=== PATIENT | male | born 1995 | race Hispanic/Latino ===

== ENCOUNTER 2017-10-13 10:41 | Emergency (ER) | payer SELFPAY ==
[~2017-10-13] VITALS: Ht 185.4 cm; Wt 108.9 kg
[~2017-10-13 10:41] MED LIST: K DUR10 MEQ PO; LANTUS 3ML100 UNITS/ SC; NOVOLOG100 UNIT/1 SQ
[2017-10-13] MEDS ORDERED: LIDOCAINE 1% W/EPINEPHRINE 20 ML VIAL INJ ONE (11:30)
[2017-10-13 11:46] VITALS: BP 136/88
== END 2017-10-13 11:48 | disposition home or self-care (01) ==
LOC: ER 10:41
DX: L02.01 Cutaneous abscess of face (principal)
CPT/HCPCS: 99283

== ENCOUNTER 2018-01-18 15:44 | Inpatient (IN) | payer OTHER ==
[~2018-01-18] VITALS: Ht 185.4 cm; Wt 108.9 kg
--- OUTSIDE RECORDS SUMMARY | 2018-01-18 15:45 | XMS REPORT | Continuity of Care Document ---
Author Author [facility] Organization [facility] Address [address] [place] [place] [address] Phone Unavailable Care Team Providers Care Chocolate Maker Name Role Phone JOLYNN KUMAR DO PCP Insurance Providers Guarantor Richar Morales Address [address] [place] [address] Payer [employer] Policy Number [id number] Subscriber's Name Richar Morales Relationship 33 Father Group Number [id number] Group Name [facility] Effective Date 13 Advance Directives Directive Response Recorded Date/Time Does the patient have an advance directive? No 12/15/07 1:35pm If yes, is advance directive on file with [facility]? No 12/15/07 1:35pm If not on file with [facility] will patient provide a copy? No 06/17/16 1:31pm Do you have a Directive to Physician? No 10/13/17 11:29am Do you have a Medical Power of Bridge Worker? No 10/13/17 11:29am Do you have an out of hospital Do Not Resuscitate Order? No 10/13/17 11:29am Do you have any special needs we should be aware of? No 10/13/17 11:29am Do you have a support person here with you today? Yes 10/13/17 11:29am Did patient receive Notice of Privacy Practices? Yes 10/13/17 11:29am Did patient receive patient rights and responsibilities? Yes 10/13/17 11:29am Problems No problem information available. Medications Current Home Medications Medication Dose Units Route Directions Days Qty Instructions Start Date Insulin Aspart (Novolog) 100 Unit/1 Ml Cartridge 60 Units Sub-Q Before Meals Insulin Glargine (Lantus 3ML Pen) 100 Units/1 Ml Inj 40 Units Subcutaneously Bedtime Potassium Chloride (K Dur*) 10 Meq Tabcr 10 Meq Oral Daily Social History Smoking Status Start Date Stop Date Never Smoker Hospital Discharge Instructions No hospital discharge instruction information available. Plan of Care Discharge Date 10/13/17 11:48am Disposition HOME, SELF-CARE Condition at Discharge Stable Instructions/Education Provided Skin Abscess Forms Provided Work/School Excuse Prescriptions See Medication Section Referrals JOLYNN KUMAR DO Address: [address] [place] [id number] Additional Instructions/Education 1. warm compresses three times a day 2. packing out in 48 hours 3. follow uyp with your doctor in 1-2 days with out fail Functional Status No functional status information available. Allergies, Adverse Reactions, Alerts Allergen Type Severity Reaction Status Last Updated Amoxicillin Allergy Unknown Hives Active 10/01/16 penicillin Allergy Mild Hives Active 06/17/16 Immunizations No immunization information available. Vital Signs Acute Vital Signs Vital Response Date/Time Temperature (Fahrenheit) 98.0 degrees F (97.6 - 99.5) 10/13/2017 11:46am Pulse Pulse Rate (adult) 80 bpm (60 - 90) 10/13/2017 11:46am Respiratory Rate 18 bpm (12 - 24) 10/13/2017 11:46am Blood Pressure 136/88 mm Hg 10/13/2017 11:46am Height 6 ft 1 in 10/13/2017 10:55am Weight 240 lb 10/13/2017 10:55am Body Mass Index 31.7 kg/m^2 10/13/2017 10:55am Results No relevant diagnostic test, laboratory data and/or discharge summary information available. Procedures No procedure information available. Encounters Encounter Location Arrival/Admit Date Discharge/Depart Date Attending Provider Departed Emergency Room [facility] 10/13/17 10:41am 10/13 11:48am SACHIN HENDERSON MD
[2018-01-18 16:47] LABS: BASOPHILS % 0.2 % (0.0-1.0); EOSINOPHILS # (AUTO) 0.1 (0.0-0.4); EOSINOPHILS % 0.6 % (0.0-6.0); HEMATOCRIT 42.2 % (38.2-49.6); HEMOGLOBIN 15.7 g/dL (14.0-18.0); LYMPHOCYTES # (AUTO) 0.7 (1.0-3.2); LYMPHOCYTES % 8.4 % (18.0-39.1); MEAN CORPUSCULAR HEMOGLOBIN 32.4 pg (28-32); MEAN CORPUSCULAR HGB CONC 37.2 g/dL (31-35); MONOCYTES # (AUTO) 0.9 (0.2-0.8); NEUTROPHILS # (AUTO) 6.9 (2.1-6.9); NEUTROPHILS % 80.4 % (38.7-80.0); PLATELET COUNT 175 x10e3/uL (140-360); RED BLOOD COUNT 4.85 x10e6/uL (4.3-5.7); RED CELL DISTRIBUTION WIDTH 12.3 % (11.7-14.4)
[2018-01-18] MEDS ORDERED: SODIUM CHLORIDE 0.9% 1000ML 1,000 ML IV STA (17:03)
[2018-01-18 17:04] LABS: ALANINE AMINOTRANSFERASE 15 IU/L (0-55); ALBUMIN 4.3 g/dL (3.5-5.0); ALBUMIN/GLOBULIN RATIO 0.9 (0.8-2.0); ALKALINE PHOSPHATASE 150 IU/L (40-150); ANION GAP 24.4 mmol/L (8-16); BLOOD UREA NITROGEN 17 mg/dL (7-26); BUN/CREATININE RATIO 17 (6-25); CALCIUM 9.9 mg/dL (8.4-10.2); CARBON DIOXIDE 14 mmol/L (22-29); CHLORIDE 94 mmol/L (98-107); CREATININE, SERUM 1.01 mg/dL (0.72-1.25); EST GLOMERULAR FILTRATION RATE > 60 ML/MIN (60-); POTASSIUM 3.4 mmol/L (3.5-5.1); SODIUM 129 mmol/L (136-145)
[2018-01-18 17:07] LABS: GLUCOSE 464 mg/dL (74-118)
[2018-01-18] MEDS: SODIUM CHLORIDE 0.9% 1000ML 1,000 ML IV SCH ×2 (17:15→21:48)
[2018-01-18] MEDS ORDERED: INSULIN REGULAR, HUMAN 3ML VL 1 UNIT in SODIUM CHLORIDE 0.9% 100 ML IV SCH ×2 (17:30)
[2018-01-18] MEDS ORDERED: INSULIN DETEMIR 100 UNIT/ML PEN SQ PRN (17:30)
[2018-01-18] MEDS ORDERED: MAGNESIUM SULF 1GRAM/DEXTROSE 100 ML IV PRN (17:30)
--- NOTE | 2018-01-18 17:50 | Diagnostic Imaging Report ---
PROCEDURE: A single AP view of the chest. COMPARISON: None. INDICATIONS: ELEVATED BLOOD SUGAR. NAUSEA/VOMITING. ABDOMINAL PAIN FINDINGS: Lines/tubes: None. Lungs: Limited by body habitus and low lung volumes. There is no evidence of pneumonia or pulmonary edema. Pleura: There is no pleural effusion or pneumothorax. Heart and mediastinum: The heart and the mediastinum are unremarkable. Bones: No acute bony abnormality. IMPRESSION: 1. No acute cardiopulmonary disease. Dictated by: Arcadio Velázquez M.D. on 01/18/2018 at 17:52 Electronically approved by: Arcadio Velázquez M.D. on 01/18/2018 at 17:52
[2018-01-18] MEDS: POTASSIUM CHLORIDE 20MEQ/100ML 200 ML IV PRN (18:05)
[2018-01-18] MEDS: INSULIN REGULAR, HUMAN 3ML VL 100 UNIT in SODIUM CHLORIDE 0.9% 100 ML IV SCH ×2 (18:45)
[2018-01-18] MEDS ORDERED: MORPHINE SULFATE 2 MG/ML SYR IV PRN (19:00)
[2018-01-18] MEDS ORDERED: ONDANSETRON HCL 4 MG ORAL DISINTEGRATING TAB SL PRN (19:00)
[2018-01-18] MEDS ORDERED: ONDANSETRON HCL INJ 2 MG/ML VIAL IV PRN (19:00)
[2018-01-18 19:12] LABS: BILIRUBIN,URINE NEGATIVE (NEGATIVE); CLARITY,URINE CLEAR (CLEAR); COLOR,URINE YELLOW (YELLOW); KETONES,URINE 1+ (NEGATIVE); LEUKOCYTE ESTERASE ,URINE NEGATIVE (NEGATIVE); NITRITE,URINE NEGATIVE (NEGATIVE); PROTEIN,URINE DIPSTICK NEGATIVE (NEGATIVE); URINE UROBILINOGEN 0.2 mg/dL (0.2 - 1)
--- OUTSIDE RECORDS SUMMARY | 2018-01-18 19:26 | XMS REPORT ---
Author Author [facility] Address Unknown Phone Unavailable Care Team Providers Care Director Of Application Development Name Role Phone SACHIN HENDERSON Unavailable Unavailable Problems This patient has no known problems. Allergies, Adverse Reactions, Alerts This patient has no known allergies or adverse reactions. Medications This patient has no known medications. Results Test Description Test Time Test Comments Text Results Atomic Results Result Comments CHEST SINGLE (PORTABLE) [place] [id number] Patient Name: JODIE BOYD MR #: [id number] : 1995 Age/Sex: 22/M Req #: [id number] Adm Physician: Ordered by: TODD VALADEZ [employer] Report #: [id number] Location: ER Room/Bed: Procedure: [id number] DX/CHEST SINGLE (PORTABLE) Exam Date: 01/18/18 Exam Time: 1720 REPORT STATUS: Signed PROCEDURE: A single AP view of the chest. COMPARISON: None. INDICATIONS: ELEVATED BLOOD SUGAR. NAUSEA/VOMITING. ABDOMINAL PAIN FINDINGS: Lines/tubes: None. Lungs: Limited by body habitus and low lung volumes. There is no evidence of pneumonia or pulmonary edema. Pleura: There is no pleural effusion or pneumothorax. Heart and mediastinum: The heart and the mediastinum are unremarkable. Bones: No acute bony abnormality. IMPRESSION: 1. No acute cardiopulmonary disease. Dictated by : Arcadio Driver M.D. on 01/18/2018 at 17:52 Electronically approved by: Arcadio Driver M.D. on 01/18/2018 at 17:52 Dictated By: ARCADIO DRIVER MD 51 Transcribed By: YOLY on 01/18/181751 COPY TO: TODD VALADEZ NP
[2018-01-18 19:43] LABS: EPITHELIAL CELLS,URINE FEW /LPF
[2018-01-18] MEDS: DEXTROSE 5%/0.45% SOD CHL 1,000 ML IV SCH (21:48)
[2018-01-18 22:29] LABS: ANION GAP 17.7 mmol/L (8-16); BLOOD UREA NITROGEN 10 mg/dL (7-26); BUN/CREATININE RATIO 13 (6-25); CALCIUM 9.2 mg/dL (8.4-10.2); CARBON DIOXIDE 19 mmol/L (22-29); CHLORIDE 103 mmol/L (98-107); CREATININE, SERUM 0.77 mg/dL (0.72-1.25); EST GLOMERULAR FILTRATION RATE > 60 ML/MIN (60-); GLUCOSE 186 mg/dL (74-118); MAGNESIUM 1.7 MG/DL (1.3-2.1); POTASSIUM 3.7 mmol/L (3.5-5.1); SODIUM 136 mmol/L (136-145)
[2018-01-19] MEDS: SODIUM CHLORIDE 0.9% 1000ML 1,000 ML IV SCH ×4 (00:49→10:12)
[2018-01-19] MEDS: DEXTROSE 5%/0.45% SOD CHL 1,000 ML IV SCH ×2 (01:51→03:17)
[2018-01-19 02:35] LABS: ANION GAP 14.2 mmol/L (8-16); BLOOD UREA NITROGEN 9 mg/dL (7-26); BUN/CREATININE RATIO 13 (6-25); CALCIUM 8.9 mg/dL (8.4-10.2); CARBON DIOXIDE 24 mmol/L (22-29); CHLORIDE 105 mmol/L (98-107); EST GLOMERULAR FILTRATION RATE > 60 ML/MIN (60-); GLUCOSE 112 mg/dL (74-118); MAGNESIUM 1.6 MG/DL (1.3-2.1); POTASSIUM 3.2 mmol/L (3.5-5.1); SODIUM 140 mmol/L (136-145)
[2018-01-19] MEDS ORDERED: MAGNESIUM SULF 1GRAM/DEXTROSE 100 ML IV ONE (03:22)
[2018-01-19] MEDS ORDERED: POTASSIUM CHLORIDE 10MEQ/100ML 0 ML ONE (03:22)
[2018-01-19] MEDS ORDERED: POTASSIUM CHLORIDE 20MEQ/100ML 100 ML ONE (03:25)
[2018-01-19] MEDS: POTASSIUM CHLORIDE 20MEQ/100ML 200 ML IV PRN (03:33)
[2018-01-19] MEDS: INSULIN REGULAR, HUMAN 3ML VL 100 UNIT in SODIUM CHLORIDE 0.9% 100 ML IV SCH ×2 (04:23)
[2018-01-19 06:36] LABS: ANION GAP 13.3 mmol/L (8-16); BLOOD UREA NITROGEN 10 mg/dL (7-26); BUN/CREATININE RATIO 16 (6-25); CALCIUM 8.7 mg/dL (8.4-10.2); CARBON DIOXIDE 22 mmol/L (22-29); CHLORIDE 106 mmol/L (98-107); CREATININE, SERUM 0.62 mg/dL (0.72-1.25); EST GLOMERULAR FILTRATION RATE > 60 ML/MIN (60-); GLUCOSE 139 mg/dL (74-118); MAGNESIUM 1.7 MG/DL (1.3-2.1); POTASSIUM 3.3 mmol/L (3.5-5.1); SODIUM 138 mmol/L (136-145)
[2018-01-19 09:37] LABS: ANION GAP 10.4 mmol/L (8-16); BLOOD UREA NITROGEN 9 mg/dL (7-26); BUN/CREATININE RATIO 14 (6-25); CALCIUM 8.4 mg/dL (8.4-10.2); CARBON DIOXIDE 24 mmol/L (22-29); CHLORIDE 107 mmol/L (98-107); CREATININE, SERUM 0.63 mg/dL (0.72-1.25); EST GLOMERULAR FILTRATION RATE > 60 ML/MIN (60-); GLUCOSE 203 mg/dL (74-118); MAGNESIUM 1.5 MG/DL (1.3-2.1); POTASSIUM 3.4 mmol/L (3.5-5.1); SODIUM 138 mmol/L (136-145)
[2018-01-19] MEDS ORDERED: DEXTROSE 50% SYRINGE 50 ML IV PRN ×2 (10:00→13:15)
[2018-01-19] MEDS ORDERED: INSULIN REGULAR, HUMAN 100 UNIT/1 ML 3ML VIAL SQ SCH (11:30)
[2018-01-19] MEDS ORDERED: INSULIN REGULAR, HUMAN 3ML VL 100 UNIT in SODIUM CHLORIDE 0.45% 100 ML 99 ML IV SCH ×2 (13:06)
[2018-01-19 13:58] LABS: FREE T4 (FREE THYROXINE) 1.09 ng/dL (0.9-1.8); THYROID STIMULATING HORMONE 0.892 uIU/mL (0.350-4.940)
--- NOTE | 2018-01-19 14:22 | Consultation ---
DATE OF CONSULTATION: January 18, 2018 ENDOCRINE CONSULTATION This is a patient of Dr. Saldaña. Thank you very much for referring this patient. This is a 22-year-old white male who was referred to me for evaluation of uncontrolled diabetes mellitus and diabetic ketoacidosis. Patient reportedly is a known diabetic for almost 10 years, and he takes Levemir insulin about 30 units 2 to 3 times a day. He does not take any short-acting insulin. Patient also misses his insulin shots quite often. He has very strong family history of diabetes mellitus including his dad. This time the patient came to the hospital with history of severe abdominal pain, nausea, vomiting and diarrhea. On further evaluation in the emergency room, his blood sugar was found to be 464. His anion gap was 24.4. CO2 was 14. The sodium was 129 with potassium of 3.4. Patient also complains of some nausea at this time. SOCIAL HISTORY: He does not smoke. He does not drink alcohol. PHYSICAL EXAMINATION GENERAL: Today, the patient is alert, awake, a little bit apprehensive. He is moderately overweight. VITALS: His heart rate is around 100. Blood pressure 130/80 mmHg. HEENT: Essentially unremarkable. Thyroid is palpable. Clinically, he is near euthyroid. CHEST: Bilateral vesicular breathing. He has mild bronchospasm. CARDIAC: First and 2nd heart sounds. There is no 3rd or 4th heart sound. Ejection systolic murmur, grade 2/6. EXTREMITIES: The patient has evidence of diabetic sensory neuropathy in both lower extremities. CLINICAL IMPRESSION: Diabetes mellitus, type 1 probably, and diabetic ketoacidosis. PLAN: The plan at this time is to taper off the insulin drip slowly. Monitor his blood sugars closely. Start him on the subcutaneous insulin, both Levemir and Humalog. Monitor his blood sugars closely. Will also do a hemoglobin A1c and thyroid function test. I have discussed the condition in detail with the patient and his father and also stressed the need for close followup. Thanks for referring this patient. I will be following this patient with you. Job#: [id number]
[2018-01-19 14:53] VITALS: BP 136/78
[2018-01-19 17:03] LABS: ANION GAP 13.7 mmol/L (8-16); BLOOD UREA NITROGEN 10 mg/dL (7-26); BUN/CREATININE RATIO 14 (6-25); CARBON DIOXIDE 22 mmol/L (22-29); CHLORIDE 103 mmol/L (98-107); EST GLOMERULAR FILTRATION RATE > 60 ML/MIN (60-); GLUCOSE 233 mg/dL (74-118); MAGNESIUM 1.6 MG/DL (1.3-2.1); POTASSIUM 3.7 mmol/L (3.5-5.1); SODIUM 135 mmol/L (136-145)
[2018-01-19] MEDS: INSULIN LISPRO 100 UNIT/1 ML 3ML VIAL SQ SCH ×3 (17:12→20:45)
[2018-01-19 20:38] VITALS: BP 148/71
[2018-01-19] MEDS: INSULIN DETEMIR 100 UNIT/ML PEN SQ SCH (20:45)
[2018-01-20] VITALS (7 sets, daily range): BP systolic 145–166; BP diastolic 77–89
[2018-01-20] MEDS: SODIUM CHLORIDE 0.9% 1000ML 1,000 ML IV SCH ×2 (01:00→12:40)
[2018-01-20] MEDS: INSULIN LISPRO 100 UNIT/1 ML 3ML VIAL SQ SCH ×6 (08:01→16:35)
[2018-01-20] MEDS: INSULIN DETEMIR 100 UNIT/ML PEN SQ SCH (08:02)
[2018-01-20] MEDS ORDERED: [UNRECOGNIZED DRUG - OTHER] SC (14:19)
[2018-01-20] MEDS ORDERED: LEVEMIR100 UNIT/1 SQ (14:20)
== END 2018-01-20 17:22 | disposition home or self-care (01) | DRG 639 ==
LOC: ER 15:44 → ERHOLD 19:18 → MED/SURG2 01-19 13:15
DX: E10.10 Type 1 diabetes mellitus with ketoacidosis without coma (principal); E10.42 Type 1 diabetes mellitus with diabetic polyneuropathy; E86.0 Dehydration; K52.9 Noninfective gastroenteritis and colitis, unspecified
CPT/HCPCS: 36415; 71045; 80048; 80053; 81001; 82948; 83036; 83735; 84439; 84443; 85025; 99284; J3475; J3480; J7030; J7050

== ENCOUNTER 2025-06-16 18:28 | Emergency (ER) | payer SELFPAY ==
[~2025-06-16] VITALS: Ht 185.4 cm; Wt 87.7 kg
[~2025-06-16 18:28] MED LIST changes: +LEVEMIR100 UNIT/1 SQ; +[UNRECOGNIZED DRUG - OTHER] SC
[2025-06-16 18:30] VITALS: PULSE 104; RESP 16; TEMP 98.1; O2SAT 98
[2025-06-16] MEDS ORDERED: MUPIROCIN22 GM TOP (18:58)
[2025-06-16] MEDS ORDERED: CLEOCIN HCL300 MG PO (18:58)
[2025-06-16] MEDS ORDERED: KETOROLAC TROME10 MG PO (19:01)
== END 2025-06-16 19:18 | disposition home or self-care (01) ==
LOC: FSED 18:34
DX: L08.9 Local infection of the skin and subcutaneous tissue, unspecified (principal); E11.9 Type 2 diabetes mellitus without complications
CPT/HCPCS: 99282